=== PATIENT | female | born 1945 | race African-American/Black ===

== ENCOUNTER 2017-08-04 21:11 | Emergency (ER) | payer OTHER, MEDICAID ==
[~2017-08-04] VITALS: Ht 172.7 cm; Wt 69.8 kg
[~2017-08-04 21:11] MED LIST: AMLODIPINE BESYL5 MG PO; BENAZEPRIL 10 M10 MG PO; FISH OIL 1,001000 M2 PO; HYDROXYCHLOROQ200 M1 PO; PREMARIN0.625 MG PO
[2017-08-04] MEDS ORDERED: NAPROSYN500 MG PO (22:11)
[2017-08-04 22:17] VITALS: BP 188/92
== END 2017-08-04 22:17 | disposition home or self-care (01) ==
LOC: M.ERS 21:11
DX: S16.1XXA Strain of muscle, fascia and tendon at neck level, initial encounter (principal); R51 Headache; I10 Essential (primary) hypertension; W01.198A Fall on same level from slipping, tripping and stumbling with subsequent striking against other object, initial encounter; Y93.89 Activity, other specified; Y92.89 Other specified places as the place of occurrence of the external cause; Y99.8 Other external cause status

== ENCOUNTER 2019-08-14 03:46 | Observation (INO) | payer OTHER, MEDICAID ==
[~2019-08-14] VITALS: Ht 152.4 cm; Wt 70.8 kg
[~2019-08-14 03:46] MED LIST changes: +NAPROSYN500 MG PO
[2019-08-14 03:48] VITALS: BP 162/79
[2019-08-14] MEDS ORDERED: MICARDIS 20MG T20 M1 PO (03:54)
[2019-08-14 04:41] LABS: ABSOLUTE BASOPHILS 0.1 thou/uL (0.0-0.2); ABSOLUTE LYMPHOCYTES 1.1 thou/uL (0.8-5.3); ABSOLUTE MONOCYTES 0.7 thou/uL (0.0-1.2); BASOPHILS 0.5 %; EOSINOPHILS 0.1 %; HEMATOCRIT 35.4 % (37.0-47.0); HEMOGLOBIN 11.4 gm/dL (12.0-15.0); LYMPHOCYTES 10.5 %; MCH 28.4 pg (26.0-34.0); MCHC 32.1 g/dL (28.0-37.0); MCV 88.2 fL (80.0-100.0); MONOCYTES 6.2 %; MPV 9.2 fl. (7.2-11.1); NUCLEATED RBCS 0 /100WBC; PLATELET COUNT* 221 thou/uL (150-400); POLYS 82.7 %; RBC 4.02 mil/uL (4.20-5.00); RDW-CV 13.5 % (10.5-14.5); WBC 10.9 thou/uL (4.0-11.0)
[2019-08-14 04:53] LABS: CALCIUM 8.2 mg/dL (8.5-10.1); CREATININE 1.1 mg/dL (0.6-1.3); POTASSIUM 3.4 mmol/L (3.5-5.1)
[2019-08-14 05:05] LABS: ALBUMIN 3.2 g/dL (3.4-5.0); TOTAL BILIRUBIN 0.4 mg/dL (<0.1-1.0); TOTAL PROTEIN 6.5 g/dL (6.4-8.2)
--- NOTE | 2019-08-14 06:59 | NUR ---
REPORT RECEIVED FROM LAMONTE HARDY. THIS NURSE TO ASSUME PT CARE AT THIS TIME.
[2019-08-14 07:16] LABS: URINE BILIRUBIN NEGATIVE (Negative); URINE BLOOD NEGATIVE (Negative); URINE CLARITY CLEAR; URINE COLOR YELLOW; URINE GLUCOSE-RANDOM NEGATIVE (Negative); URINE KETONES NEGATIVE (Negative); URINE LEUKOCYTES-REFLEX NEGATIVE (Negative); URINE NITRITE-REFLEX NEGATIVE (Negative); URINE PROTEIN NEGATIVE (Negative); URINE UROBILINOGEN 0.2 E.U./dl (0.2-1.0)
[2019-08-14] MEDS ORDERED: ADULT LOW DOSE81 MG PO (07:37)
[2019-08-14] MEDS ORDERED: ALBUTEROL2.5 MG/31 INH (07:41)
[2019-08-14] MEDS ORDERED: ACETAMINOP-COD118 ML PO (07:43)
--- NOTE | 2019-08-14 08:37 | NUR ---
REPORT GIVEN TO LAMONTE THAO WHO IS TO ASSUME PT CARE INPATIENT NURSE.
[2019-08-14 08:39] VITALS: BP 171/77
[2019-08-14 11:35] VITALS: BP 166/85
--- NOTE | 2019-08-14 12:47 | EKG ---
[place] [address] ELECTROCARDIOGRAM REPORT Name: DAO CHUNG Room: [address] ADM IN M.R.#: [id number] Admission: 08/14/19 Attend Phys: Xander Rodríguez, Discharge: Date of : 43 Date of Service: 08/14/19 0449 Report #: [id number] THIS REPORT FOR: //name// [facility] ED Test Date: 2019-08-14 Test Time: 04:49:07 Pat Name: DAO CHUNG Department: Room: [facility] Gender: F Before School Babysitter: DRISS : 1945 Requested By: Martine Bourgeois Order Number: [id number] MD: Mohit Amor Measurements Intervals [place] Rate: 63 P: 32 ME: 172 QRS: -70 QRSD: 165 T: 41 QT: 546 QTc: 560 Interpretive Statements Sinus rhythm left anterior fasicular block Right bundle branch block 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
[2019-08-14 16:00] VITALS: BP 148/52
--- NOTE | 2019-08-14 16:11 | NUR ---
PT A&Ox4. VITALS STABLE. IV PATENT. ADMIT COMPLETE. WILL RECIEVE BOWEL PREP. UP AD TAMY. CLEAR LIQUIDS. WILL CONTINUE TO MONITOR. CALL LIGHT WITHIN REACH.
[2019-08-14 21:33] VITALS: BP 149/74
--- NOTE | 2019-08-15 05:42 | NUR ---
FINISHED GO LYTELY PREP. WAS ABLE TO HAVE LOOSE WATERY STOOLS. TOOK SHOWER IN MIDDLE OF NIGHT, WAS ABLE TO REST COMFORTABLY. SHE DID NOT REPORT ANY PAIN OR NAUSEA AND IS DRINKING PLENTY OF FLUIDS. UP AD TAMY, ROOM AIR, SEPTEMBER D/C TODAY. WILL CONTINUE TO MONITOR.
[2019-08-15 08:10] VITALS: BP 176/90
--- NOTE | 2019-08-15 12:07 | NUR ---
CM COMPLETED ASSESSMENT. PT IS A&OX4. PT LIVES ALONE IN AN APT. PT STATES HER "JAIN" IS "VERY SUPPORTIVE." PT HAS 3 ADULT CHILDREN, 2 LIVE OOT. 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 PT HAS CRUTCHES, CANE AND WALKER. DRIVES. HX W/HH - DNT RECALL. DENIES HX W/SNF. CM TO CONT TO FOLLOW.
[2019-08-15 16:00] VITALS: BP 166/72
--- NOTE | 2019-08-15 17:44 | NUR ---
PT A&Ox4. VITALS STABLE. IV PATENT. TOLERATING CLEARS. NOT WANTING TO DRINK MUCH, EDUCATION GIVEN. PT STATES "I FEEL DEHYDRATED", ON IV FLUIDS. MULTIPLE BM'S. CALL LIGHT WITHIN REACH. WILL CONTINUE TO MONITOR.
[2019-08-15 20:46] VITALS: BP 162/82
--- NOTE | 2019-08-16 04:46 | NUR ---
PATIENT STILL UP AD TAMY DOING WELL. SHE IS TOLERATING FLUIDS AND DID NOT REPORT AND PAIN OR NAUSEA DURING THE SHIFT. SHE WAS ABLE TO GET UP AND SHOWER AND SHE SLEPT MOST OF THE NIGHT. SHE STATES SHE FEELS MUCH BETTER. WILL CONTINUE TO MONIOR.
[2019-08-16 09:32] VITALS: BP 1142/79
[2019-08-16 15:37] VITALS: BP 1142/79
[2019-08-16 15:39] VITALS: BP 1142/79
--- NOTE | 2019-08-16 16:33 | NUR ---
PT DISCHARGED TO HOME SELF CARE. ALL DIScharge instructions reviewed with the pt. the pt has all paperwork. pt has all belongings. follow up visits reviewed. pt is stable. transported to personal vehicle via w/c accompanied by staff.
== END 2019-08-16 15:00 | disposition home or self-care (01) ==
LOC: M.ERS 03:46 → M.ORTHSURG 06:34 → M.TBA-ER 06:34 → M.ORTHSURG 06:34
PROVIDERS: Emergency Medicine; ADMIT Internal Medicine
DX: K59.00 Constipation, unspecified (principal); E86.0 Dehydration; M32.9 Systemic lupus erythematosus, unspecified; I10 Essential (primary) hypertension